=== PATIENT | male | born 1970 | race African-American/Black ===

== ENCOUNTER 2025-03-26 11:25 | Emergency (ER) | payer BC ==
[2025-03-26 12:55] LABS: Absolute Lymphocytes (CBC) 1.8 K/uL (0.7-4.9); Hematocrit 39.9 % (39.6-49.0); Hemoglobin 13.4 g/dL (13.6-17.9); MCH 30.6 pg (27.0-35.0); MCHC 33.7 g/dL (32.0-36.0); MCV 90.7 fL (80-100); MPV 9.0 fL (7.6-11.3); Nucleated RBC Absolute Count 0.0 (0-0); Nucleated Red Blood Cells % 0.2 % (0-0); RBC Red Blood Cell Count 4.40 M/uL (4.33-5.43); White Blood Count 7.00 thou/uL (4.3-10.9)
[2025-03-26 13:02] LABS: PT Prothrombin Time 12.1 SECONDS (10-13.0); Protime INR 1.07
--- NOTE | 2025-03-26 13:16 | RAD REPORT ---
EXAMINATION: Head Brain Wo Cont CLINICAL INDICATION: Male, 55 years old.Headache, HTN Urgency TECHNIQUE: Axial CT images from the skull base to the vertex without intravenous contrast. Coronal an d sagittal reformatted images were created from the data set. One or more of the following dose reduction techniques were used: Automated exposure control, adjustment of the mA and/or kV according to patient size, and/or iterative reconstruction. Unless otherwise specified, incidental findings do not require dedicated imaging follow-up. [id number]. COMPARISON: No prior exams FINDINGS: INTRACRANIAL: No acute intracranial hemorrhage. No acute large vascular territory infarct. No hydroce phalus. No mass effect or midline shift. Mild chronic small vessel ischemic changes. VASCULATURE: No visualized abnormalities in the arteries or dural venous sinuses. SCALP/SKULL: No calvarial fracture identified. No acute soft tissue abnormality. SINUSES: The visualized paranasal sinuses are mostly clear. No significant mastoid fluid. IMPRESSION: No acute intracranial abnormality.
[2025-03-26 13:22] LABS: ALT/SGPT 26.0 U/L (16-61); Albumin 3.6 g/dL (3.4-5.0); Albumin/Globulin Ratio 1.1 (1.1-1.8); Alkaline Phosphatase 72.0 U/L (45-117); Anion Gap 8.0 mEq/L (5.0-15.0); BUN Blood Urea Nitrogen 18.0 mg/dL (7-18); Bilirubin Indirect, Calculated 0.4 mg/dL (0.2-0.8); Globulin 3.4 g/dL (2.3-3.5); Glucose Level 99.0 mg/dL (74-106); NT PRO-BNP 72.0 pg/mL (<125); Troponin High Sensitivity 6.5 pg/mL (<58.9)
[2025-03-26] MEDS ORDERED: LABETALOL 20 MG/4ML SYRINGE IV ONE (13:27)
[2025-03-26 13:29] LABS: AST/SGOT 22.0 U/L (15-37); Magnesium 2.3 mg/dL (1.6-2.4); Potassium 4.0 mEq/L (3.5-5.1)
[2025-03-26] MEDS ORDERED: HYDRALAZINE HCL 20 MG/ML VIAL ONE (14:14)
--- NOTE | 2025-03-26 14:39 | EDPHYS ---
Physician Documentation [facility] Name: Jaswinder Soares Jr Age: 55 yrs Sex: Male : 1970 Arrival Date: 03/26/2025 Time: 11:25 Bed 10 Private MD: ED Physician Samuel Erwin HPI: 03/26 12:37 This 55 yrs old Male presents to ER via Ambulatory with complaints of High Blood sp3 Pressure, Headache, Back Pain - LOWER. 12:37 55-year-old male with history of hypertension and lumbar disc disease currently being sp3 seen at [facility]. Patient had extensive workup on his lower back and is set to see spinal surgery however they are in the process of controlling his blood pressure. He is currently on 3 different medications. Today he presents with high blood pressure, headache over the last 48 hours. 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 He denies any chest pain, neck pain, shortness of breath, upper back pain, abdominal pain, vomit, diarrhea, syncope, rash, bleeding or any other signs or symptoms on ROS at this time.. Historical: - Allergies: 11:58 No Known Allergies; iw - PMHx: 11:58 Hypertensive disorder; iw - Immunization history:: Adult Immunizations up to date. - Infectious Disease History:: Denies. - Social history:: Smoking status: Smoking status: Patient denies any tobacco usage or history of. ROS: 12:39 Constitutional: Negative for fever, chills, and weight loss, Eyes: Negative for injury, sp3 pain, redness, and discharge, Neck: Negative for injury, pain, and swelling, Respiratory: Negative for shortness of breath, cough, wheezing, and pleuritic chest pain, Abdomen/GI: Negative for abdominal pain, nausea, vomiting, diarrhea, and constipation, Back: Negative for injury and pain, MS/Extremity: Negative for injury and deformity, Skin: Negative for injury, rash, and discoloration, Neuro: Negative for headache, weakness, numbness, tingling, and seizure, Psych: Negative for depression, anxiety, suicide ideation, homicidal ideation, and hallucinations, Allergy/Immunology: Negative for hives, rash, and allergies, Endocrine: Negative for neck swelling, polydipsia, polyuria, polyphagia, and marked weight changes, 12:39 All other systems are negative, Exam: 12:39 Constitutional: This is a well developed, well nourished patient who is awake, alert, sp3 and in no acute distress. Head/Face: Normocephalic, atraumatic. Eyes: Pupils equal round and reactive to light, extra-ocular motions intact. Lids and lashes normal. Conjunctiva and sclera are non-icteric and not injected. Cornea within normal limits. Periorbital areas with no swelling, redness, or edema. Neck: Trachea midline, no thyromegaly or masses palpated, and no cervical lymphadenopathy. Supple, full range of motion without nuchal rigidity, or vertebral point tenderness. No Meningismus. Chest/axilla: Normal chest wall appearance and motion. Nontender with no deformity. No lesions are appreciated. Cardiovascular: Regular rate and rhythm with a normal S1 and S2. No gallops, murmurs, or rubs. Normal PMI, no JVD. No pulse deficits. Respiratory: Lungs have equal breath sounds bilaterally, clear to auscultation and percussion. No rales, rhonchi or wheezes noted. No increased work of breathing, no retractions or nasal flaring. Abdomen/GI: Soft, non-tender, with normal bowel sounds. No distension or tympany. No guarding or rebound. No evidence of tenderness throughout. Back: No spinal tenderness. No costovertebral tenderness. Full range of motion. Skin: Warm, dry with normal turgor. Normal color with no rashes, no lesions, and no evidence of cellulitis. MS/ Extremity: Pulses equal, no cyanosis. Neurovascular intact. Full, normal range of motion. Neuro: Awake and alert, GCS 15, oriented to person, place, time, and situation. Cranial nerves II-XII grossly intact. Motor strength 5/5 in all extremities. Sensory grossly intact. Cerebellar exam normal. Normal gait. Psych: Awake, alert, with orientation to person, place and time. Behavior, mood, and affect are within normal limits. 13:51 ECG was reviewed by the Attending Physician. EKG demonstrates normal sinus rhythm at 67 sp3 bpm with right bundle branch block and nonspecific diffuse ST/T changes including high voltage and ventricular hypertrophy without evidence of acute ischemia. Vital Signs: 11:56 BP 172 / 104; Pulse 71; Resp 16; Temp 98.5(O); Pulse Ox 95% ; Weight 92.99 kg; Height 6 iw ft. 4 in. ; Pain 8/10; 13:59 BP 173 / 112; Pulse 64; Resp 17; Pulse Ox 100% on R/A; ap3 14:08 BP 173 / 104; Pulse 67; Pulse Ox 100% on R/A; ap3 14:39 BP 161 / 99; Pulse 67; Resp 18; Pulse Ox 100% on R/A; ap3 11:56 Body Mass Index 24.95 (92.99 kg, 193.04 cm) iw 11:56 Pain Scale: Adult iw MDM: 11:58 Medical Screening Exam initiated sp3 12:39 Data reviewed: vital signs, nurses notes, lab test result(s), EKG, radiologic studies. sp3 ED course: 55-year-old male with headache and hypertension. Differential diagnosis includes hypertensive urgency versus essential hypertension versus electrolyte disturbance, versus to a lower degree acute coronary syndrome or ICH or renal injury from the blood pressure. Will assess for endorgan damage with CT scan of the head, general labs including troponin and creatinine, EKG and general supportive care.. 14:37 ED course: Blood pressure improved. Patient asking to go home repeatedly. Will safely sp3 discharge him home and he will follow-up with his PCP on blood pressure medication changes.. 03/26 12:36 Order name: Basic Metabolic Panel; Complete Time: 13:31 3 03/26 12:36 Order name: CBC with Diff; Complete Time: 13:22 3 03/26 12:36 Order name: LFT's; Complete Time: 13: 3 03/26 12:36 Order name: Magnesium; Complete Time: 13:31 3 03/26 12:36 Order name: NT PRO-BNP; Complete Time: 13:31 3 03/26 12:36 Order name: PT-INR; Complete Time: 13:22 3 03/26 12:36 Order name: Troponin HS; Complete Time: 13:31 3 03/26 12:36 Order name: CT Head Brain wo Cont; Complete Time: 13:22 3 03/26 12:36 Order name: EKG - Nurse/Tech; Complete Time: 13:16 3 03/26 12:36 Order name: IV Saline Lock; Complete Time: 12:50 3 03/26 12:36 Order name: Labs collected and sent; Complete Time: 12:50 sp3 03/26 12:36 Order name: O2 Per Protocol; Complete Time: 12:50 sp3 03/26 12:36 Order name: O2 Sat Monitoring; Complete Time: 12:50 sp3 Administered Medications: 13:40 Drug: Labetalol IV 10 mg IV at calculated rate once Route: IV; Rate: calculated rate; ap3 Site: right antecubital; 14:19 Follow up: Response: No adverse reaction; Blood pressure is lowered ap3 14:19 Drug: hydrALAZINE IVP 10 mg IVP once Route: IVP; Site: right antecubital; ap3 14:39 Follow up: Response: No adverse reaction; Blood pressure is lowered ap3 Disposition Summary: 03/26/25 14:38 Discharge Ordered Notes: Location: Home sp3 Condition: Stable sp3 Diagnosis - Hypertensive urgency sp3 Followup: sp3 - With: Private Physician - When: Upon discharge from the Emergency Department - Reason: Continuance of care Discharge Instructions: - Discharge Summary Sheet sp3 - Managing Your Hypertension sp3 Forms: - Work release form ap3 - Medication Reconciliation Form sp3 - Antibiotic Education sp3 - Prescription Opioid Use sp3 - Patient Portal Instructions sp3 - Leadership Thank You Letter sp3 Signatures: Dispatcher [employer] EDMargo Perez RN RN iw Sowmya Marcos RN RN ap3 Samuel Erwin MD MD sp3 Corrections: (The following items were deleted from the chart) 12:36 12:36 BASIC METABOLIC PANEL+C.LAB.BRZ ordered. EDMS EDMS 12:36 12:36 CBC+H.LAB.BRZ ordered. EDMS EDMS 12:36 12:36 HEPATIC FUNCTION+C.LAB.BRZ ordered. EDMS EDMS 12:36 12:36 MAGNESIUM+C.LAB.BRZ ordered. EDMS EDMS 12:36 12:36 PROBNP+C.LAB.BRZ ordered. EDMS EDMS 12:36 12:36 PROTIME (+INR)+COAG.LAB.BRZ ordered. EDMS EDMS 12:37 12:36 Troponin High Sensitivity+C.LAB.BRZ ordered. EDMS EDMS 12:37 12:37 Head Brain Wo Cont+CT.RAD.BRZ ordered. EDMS EDMS
--- NOTE | 2025-03-26 14:39 | ER ---
Nurse's Notes [facility] Name: Jaswinder Soares Jr Age: 55 yrs Sex: Male : 1970 Arrival Date: 03/26/2025 Time: 11:25 Bed 10 Private MD: Diagnosis: Hypertensive urgency Presentation: 03/26 11:57 Chief complaint: Patient states: BP has been running high off and on for past couple iw months , today my head started hurting and I felt it was high again . took his amlodipine, lisinopril , and metoprolol this morning , he is having issues with his lower back that causes pain and it makes his BP shoot up. Coronavirus screen: At this time, the client does not indicate any symptoms associated with coronavirus-19. Ebola Screen: No symptoms or risks identified at this time. Initial Sepsis Screen: Does the patient meet any 2 criteria? No. Patient's initial sepsis screen is negative. Does the patient have a suspected source of infection? No. Patient's initial sepsis screen is negative. Risk Assessment: Do you want to hurt yourself or someone else? Patient reports no desire to harm self or others. Onset of symptoms was January 2025. 11:57 Method Of Arrival: Ambulatory iw 11:57 Acuity: CECIL 3 iw Triage Assessment: 14:48 General: Appears in no apparent distress. Behavior is calm, cooperative, appropriate ap3 for age. Pain: Pain Pain began gradually, Also complains of no other associated symptoms. Neuro: Level of Consciousness is awake, alert, obeys commands, Oriented to person, place, time, situation, Appropriate for age. 14:49 Headache History: The patient has had previous headaches. ap3 Historical: - Allergies: 11:58 No Known Allergies; iw - PMHx: 11:58 Hypertensive disorder; iw - Immunization history:: Adult Immunizations up to date. - Infectious Disease History:: Denies. - Social history:: Smoking status: Smoking status: Patient denies any tobacco usage or history of. Screenin:52 [facility] ED Fall Risk Assessment (Adult) History of falling in the last 3 months, ap3 including since admission No falls in past 3 months (0 pts) Confusion or Disorientation No (0 pts) Intoxicated or Sedated No (0 pts) Impaired Gait No (0 pts) Mobility Assist Device Used No (0 pt) Altered Elimination No (0 pt) Score/Fall Risk Level 0 - 2 = Low Risk Oriented to surroundings, Maintained a safe environment, Educated pt \T\ family on fall prevention, incl call for assistance when getting out of bed, Assessed \T\ reinforced patient's understanding of fall precautions, Hourly rounding (assess needs \T\ fall precautionary measures) done, Used ambulatory aids as needed (educated on \T\ assisted with). Abuse screen: Denies threats or abuse. Nutritional screening: No deficits noted. Tuberculosis screening: No symptoms or risk factors identified. Assessment: 13:52 General: Appears in no apparent distress. Behavior is calm, cooperative, appropriate ap3 for age. Pain: Complains of pain in low back area. Neuro: Level of Consciousness is awake, alert, obeys commands, Oriented to person, place, time, situation, Appropriate for age. Cardiovascular: Patient's skin is warm and dry. Respiratory: Airway is patent Respiratory effort is even, unlabored, Respiratory pattern is regular, symmetrical. Vital Signs: 11:56 BP 172 / 104; Pulse 71; Resp 16; Temp 98.5(O); Pulse Ox 95% ; Weight 92.99 kg; Height 6 iw ft. 4 in. ; Pain 8/10; 13:59 BP 173 / 112; Pulse 64; Resp 17; Pulse Ox 100% on R/A; ap3 14:08 BP 173 / 104; Pulse 67; Pulse Ox 100% on R/A; ap3 14:39 BP 161 / 99; Pulse 67; Resp 18; Pulse Ox 100% on R/A; ap3 11:56 Body Mass Index 24.95 (92.99 kg, 193.04 cm) iw 11:56 Pain Scale: Adult iw ED Course: 11:29 Patient arrived in ED. cj3 11:31 Samuel Erwin MD is Attending Physician. sp3 11:58 Triage completed. iw 12:00 Arm band placed on. iw 12:28 Sowmya Marcos, KB is Primary Nurse. ap3 12:49 Initial lab(s) drawn, by me, sent to lab. Inserted saline lock: 22 gauge in right ap3 antecubital area, using aseptic technique. Blood collected. Flushed with 10 mL NS. 13:09 CT Head Brain wo Cont In Process Unspecified. EDMS 13:15 EKG done, by ED staff, reviewed by Samuel Erwin MD. ap3 13:53 Patient has correct armband on for positive identification. Bed in low position. Call ap3 light in reach. Side rails up X 1. Provided Education on: medications prior to administration. Client placed on continuous cardiac and pulse oximetry monitoring. NIBP monitoring applied. electric dolly operator on. Pulse ox on. NIBP on. 14:40 No provider procedures requiring assistance completed. ap3 14:45 IV discontinued, intact, bleeding controlled, No redness/swelling at site. Pressure ap3 dressing applied. Administered Medications: 13:40 Drug: Labetalol IV 10 mg IV at calculated rate once Route: IV; Rate: calculated rate; ap3 Site: right antecubital; 14:19 Follow up: Response: No adverse reaction; Blood pressure is lowered ap3 14:19 Drug: hydrALAZINE IVP 10 mg IVP once Route: IVP; Site: right antecubital; ap3 14:39 Follow up: Response: No adverse reaction; Blood pressure is lowered ap3 Medication: 14:49 VIS not applicable for this client. ap3 Outcome: 14:38 Discharge ordered by . sp3 14:48 Discharged to home ambulatory, ap3 14:48 Condition: good 14:48 Discharge instructions given to patient, Instructed on discharge instructions, follow up and referral plans. 14:49 Patient left the ED. ap3 Signatures: Dispatcher [employer] EDMS Margo Estrada RN RN iw Sowmya Marcos RN RN ap3 Samuel Erwin MD MD sp3 Valarie Ortez cj3 Corrections: (The following items were deleted from the chart) 11:59 11:57 Chief complaint: Patient states: BP has been running high off and on for past iw couple months , today my head started hurting and I felt it was high again . took his amlodipine, lisinopril , and metoprolol this morning iw 12:00 11:56 BP 172 / 104; Pulse 71bpm; Resp 16bpm; Pulse Ox 95%; Temp 98.5F Oral; iw iw
[2025-03-26 14:59] VITALS: TEMP 98.5
[2025-03-26 15:00] VITALS: O2SAT 100
[2025-03-26 15:04] VITALS: BP 161/99
== END 2025-03-26 14:49 | disposition home or self-care (01) ==
LOC: ER 11:25
DX: I16.0 Hypertensive urgency (principal); I10 Essential (primary) hypertension
CPT/HCPCS: 93005; 85025; 80048; 36415; 83735; 85610; 80076; 84484; 83880; 70450; 96375; 96374; 99285; J0360